=== PATIENT | female | born 1980 | race American Indian/Alaskan Native ===

== ENCOUNTER 2018-09-30 17:40 | Outpatient (CLI) | payer OTHER, MEDICAID ==
[2018-09-30 18:50] VITALS: BP 103/66
[2018-09-30] MEDS ORDERED: LACTATED RINGERS 500 ML IV ONE (18:50)
== END 2018-09-30 20:57 | disposition home or self-care (01) ==
LOC: TRG 17:40
PROVIDERS: ATTEND Obstetrics & Gynecology
DX: O47.02 False labor before 37 completed weeks of gestation, second trimester (principal); O99.513 Diseases of the respiratory system complicating pregnancy, third trimester; J45.909 Unspecified asthma, uncomplicated; Z3A.26 26 weeks gestation of pregnancy